=== PATIENT | female | born 1930 | race Caucasian/White ===

== ENCOUNTER → 2019-05-19 | Outpatient (CLI) | payer MEDICARE, BC, OTHER ==
[~2019-05-19] MED LIST: ASA81BEC PO; ASPIRIN81 M2 PO; ATORVASTATIN CA40 MG PO; BUPROPION XL300 MG PO; CALCIUM500 MG PO; CENTRUM SILVER1 EAC4 PO; CIPRO500 MG PO; ELIQUIS5 MG PO; FENOFIBRATE150 MG PO; FLAGYL500 MG PO; FLAXSEED OIL1000 MG PO; FOLIC ACID1 MG PO; GEMFIBROZIL 60600 MG PO; LEVAQUIN 500 M500 M3 PO; LIPITOR40 MG PO; MELATONIN3 MG PO; NEXIUM40 MG PO; PAXIL40 MG PO; PREDNISONE 10 M10 MG PO; SYNTHROID100 MCG PO; TOPROL XL100 MG PO; VITAMIN B12-FO1 EAC1 PO; WELLBUTRIN SR200 MG PO
== END ==
LOC: M.CT 12:31
DX: R91.1 Solitary pulmonary nodule (principal); J47.9 Bronchiectasis, uncomplicated; R93.89 Abnormal findings on diagnostic imaging of other specified body structures

== ENCOUNTER 2019-05-21 13:42 | Inpatient (IN) | payer MEDICARE, BC, OTHER ==
[~2019-05-21] VITALS: Ht 172.7 cm; Wt 84.8 kg
[~2019-05-21 13:42] MED LIST changes: -ASA81BEC PO; -BUPROPION XL300 MG PO; -CALCIUM500 MG PO; -ELIQUIS5 MG PO; -FENOFIBRATE150 MG PO; -FLAXSEED OIL1000 MG PO; -FOLIC ACID1 MG PO; -LEVAQUIN 500 M500 M3 PO; -LIPITOR40 MG PO; -PREDNISONE 10 M10 MG PO; -TOPROL XL100 MG PO; -VITAMIN B12-FO1 EAC1 PO
[2019-05-21 13:58] VITALS: BP 152/53
[2019-05-21] MEDS ORDERED: FENOFIBRATE150 MG PO (14:16)
[2019-05-21] MEDS ORDERED: BUPROPION XL300 MG PO (14:16)
[2019-05-21] MEDS ORDERED: TOPROL XL100 MG PO (14:16)
[2019-05-21] MEDS ORDERED: LIPITOR40 MG PO (14:16)
[2019-05-21] MEDS ORDERED: PAXIL40 MG PO (14:17)
[2019-05-21] MEDS ORDERED: FOLIC ACID1 MG PO (14:18)
[2019-05-21] MEDS ORDERED: CENTRUM SILVER1 EAC4 PO (14:18)
[2019-05-21] MEDS ORDERED: FLAXSEED OIL1000 MG PO (14:18)
[2019-05-21] MEDS ORDERED: CALCIUM500 MG PO (14:19)
[2019-05-21] MEDS ORDERED: VITAMIN B12-FO1 EAC1 PO (14:19)
[2019-05-21 14:38] LABS: HEMATOCRIT 37.7 % (37.0-47.0); HEMOGLOBIN 12.4 gm/dL (12.0-15.0); MCH 29.2 pg (26.0-34.0); MCHC 32.9 g/dL (28.0-37.0); MCV 88.6 fL (80.0-100.0); MPV 8.9 fl. (7.2-11.1); NUCLEATED RBCS 0 /100WBC; PLATELET COUNT* 219 thou/uL (150-400); RBC 4.25 mil/uL (4.20-5.00); RDW-CV 15.5 % (10.5-14.5)
[2019-05-21 14:43] LABS: CALCIUM 9.6 mg/dL (8.5-10.1); CREATININE 0.8 mg/dL (0.6-1.3); POTASSIUM 4.1 mmol/L (3.5-5.1)
[2019-05-21 14:53] LABS: ALBUMIN 3.5 g/dL (3.4-5.0); MAGNESIUM 1.5 mg/dL (1.8-2.4); TOTAL BILIRUBIN 0.5 mg/dL (<0.1-1.0); TOTAL PROTEIN 6.6 g/dL (6.4-8.2)
[2019-05-21 15:05] LABS: INFLUENZA A ANTIGEN Negative (Negative); INFLUENZA B ANTIGEN Negative (Negative)
[2019-05-21 15:27] LABS: BE -1.5 mmol/L (-2 to +3); PCO2 33.7 mmHg (35.0-45.0); pH 7.434 (7.340-7.450)
[2019-05-21 15:30] LABS: PO2 54.9 mmHg (75.0-100.0)
[2019-05-21 15:50] LABS: ABSOLUTE EOSINOPHILS 0.7 thou/uL (0.0-0.7); ABSOLUTE LYMPHOCYTES 24.1 thou/uL (0.8-5.3); ABSOLUTE MONOCYTES 0.7 thou/uL (0.0-1.2); ABSOLUTE NEUTROPHILS 7.6 thou/uL (1.6-8.1); ANISOCYTOSIS Occasional; ATYPICAL LYMPHS 3 %; PLATELET ESTIMATE ADEQUATE
[2019-05-21 16:39] LABS: URINE BILIRUBIN NEGATIVE (Negative); URINE BLOOD NEGATIVE (Negative); URINE CLARITY CLEAR; URINE COLOR YELLOW; URINE GLUCOSE-RANDOM NEGATIVE (Negative); URINE KETONES NEGATIVE (Negative); URINE LEUKOCYTES-REFLEX NEGATIVE (Negative); URINE NITRITE-REFLEX NEGATIVE (Negative); URINE PROTEIN NEGATIVE (Negative); URINE SPECIFIC GRAVITY 1.015 (1.005-1.030); URINE UROBILINOGEN 0.2 E.U./dl (0.2-1.0)
[2019-05-21 16:41] VITALS: BP 108/50
[2019-05-21 17:00] VITALS: BP 130/50
[2019-05-21 19:30] VITALS: BP 116/52
[2019-05-22 00:54] VITALS: BP 131/61
[2019-05-22 04:00] VITALS: BP 127/64
[2019-05-22 08:00] VITALS: BP 138/85
[2019-05-22 12:00] VITALS: BP 120/65
[2019-05-22 16:00] VITALS: BP 147/50
[2019-05-22 20:32] VITALS: BP 127/45
[2019-05-23] VITALS (7 sets, daily range): BP systolic 120–162; BP diastolic 46–94
[2019-05-23 05:48] LABS: HEMATOCRIT 31.7 % (37.0-47.0); MCH 28.7 pg (26.0-34.0); MCHC 32.4 g/dL (28.0-37.0); MCV 88.7 fL (80.0-100.0); RBC 3.58 mil/uL (4.20-5.00); RDW-CV 15.3 % (10.5-14.5); WBC 34.4 thou/uL (4.0-11.0)
[2019-05-23 05:52] LABS: HEMOGLOBIN 10.3 gm/dL (12.0-15.0)
[2019-05-23 06:08] LABS: ALBUMIN 2.8 g/dL (3.4-5.0); CALCIUM 9.2 mg/dL (8.5-10.1); CREATININE 0.8 mg/dL (0.6-1.3); MAGNESIUM 1.8 mg/dL (1.8-2.4); POTASSIUM 3.9 mmol/L (3.5-5.1); TOTAL BILIRUBIN 0.3 mg/dL (<0.1-1.0); TOTAL PROTEIN 5.5 g/dL (6.4-8.2)
[2019-05-24] VITALS: BP 143/62
[2019-05-24 04:00] VITALS: BP 165/66
[2019-05-24 08:00] VITALS: BP 156/114; BP 156/70
--- NOTE | 2019-05-24 08:35 | EKG ---
[place] [address] ELECTROCARDIOGRAM REPORT Name: MARGA ARECHIGA Room: [address] ADM IN .R.#: [id number] Admission: 05/21/19 Attend Phys: Sandra Covington MD Discharge: Date of : 34 Report #: [id number] THIS REPORT FOR: //name// [facility] ED Test Date: 2019-05-21 Test Time: 14:13:14 Pat Name: MARGA ARECHIGA Department: Room: [address] Gender: F Refiner Operator: : 1930 Requested By: Mariam Dangelo Order Number: [id number] Isaiah MD: Lon Guerrier Measurements Intervals [place] Rate: 79 P: -34 CT: 197 QRS: 40 QRSD: 95 T: 33 QT: 372 QTc: 427 Interpretive Statements Sinus rhythm Possible left atrial enlargement Artifact Compared to ECG 03/22/2016 19:50:14 Changes noted Electronically Signed On 05-24-2019 8:35:42 CDT by Lon Guerrier [email or web address] <ELECTRONICALLY SIGNED> By: Lon Guerrier MD, [facility] 05/24/19 0835 1413 1413 Lon Guerrier MD, [facility] /EPI
--- NOTE | 2019-05-24 12:33 | 2DMMODE ---
[place] [address] 2 D/M-MODE ECHOCARDIOGRAM Name: HAWKMARGA GAVIOTALázaro Room: [address] IN [facility]#: [id number] Admission: 05/21/19 Attend Phys: Sandra Covington, Discharge: Date of : 34 Date of Service: 05/24/19 1233 Report #: [id number] THIS REPORT FOR: //name// APPROVED REPORT Study performed: 05/24/2019 10:18:40 EXAM: Comprehensive 2D, Doppler, and color-flow Echocardiogram Patient Location: In-Patient Room #: 229 BSA: 1.97 HR: 70 bpm BP: 156/70 mmHg Other Information Study Quality: Good Indications Hypoxemia 2D Dimensions IVSd: 12.66 (7-11mm) LVOT Diam: 20.64 (18-24mm) LVDd: 48.88 mm PWd: 10.91 (7-11mm) Ascending Ao: 29.60 (22-36mm) LVDs: 29.64 (25-40mm) Aortic Root: 29.47 mm Volumes Left Atrial Volume (Systole) LA ESV Index: 24.20 mL/m2 Aortic Valve AoV Peak Asher.: 1.96 m/s AO Peak Gr.: 15.39 mmHg LVOT Max P.43 mmHg AO Mean Gr.: 8.41 mmHg LVOT Mean P.15 mmHg LVOT Max V: 1.17 m/s AO V2 VTI: 39.99 cm LVOT Mean V: 0.66 m/s LUIS ALFREDO (VTI): 2.22 cm2 LVOT V1 VTI: 26.50 cm AI Bartholomew: 2.29 m/s2 AI PHT: 493.24 ms Mitral Valve E/A Ratio: 0.72 MV Decel. Time: 205.12 [place] [address] 2 D/M-MODE ECHOCARDIOGRAM Name: MARGA ARECHIGA Room: [address] IN .R.#: [id number] Admission: 05/21/19 Attend Phys: Sandra Covington, Discharge: Date of : 34 Date of Service: 05/24/19 1233 Report #: [id number] MV E Max Asher.: 0.67 m/s MV PHT: 59.49 ms MVA (PHT): 3.70 cm2 TDI E/Lateral E': 7.44 E/Medial E': 9.57 Medial E' Asher.: 0.07 m/s Lateral E' Asher.: 0.09 m/s Pulmonary Valve PV Peak Asher.: 0.87 m/s PV Peak Gr.: 3.03 mmHg Tricuspid Valve RAP Estimate: 5.00 mmHg TR Peak Gr.: 26.48 mmHg RVSP: 31.48 mmHg PA Pressure: 31.48 mmHg Left Ventricle The left ventricle is normal size. There is normal LV segmental wall motion. There is normal left ventricular wall thickness. Left ventricular systolic function is normal. LVEF is 60-65%. Grade I - abnormal relaxation pattern. Right Ventricle The right ventricle is normal size. The right ventricular systolic function is normal. Atria The left atrium size is normal. The right atrium size is normal. Aortic Valve Aortic valve is mildly calcified. Mild to moderate aortic regurgitation. There is no aortic valvular stenosis. Mitral Valve Mild mitral annular calcification. There is no mitral valve regurgitation noted. No evidence of mitral valve stenosis. Tricuspid Valve The tricuspid valve is normal in structure. Mild tricuspid regurgitation. The RVSP is 30-35 mmHg. Pulmonic Valve The pulmonary valve is normal in structure. There is no pulmonic [place] [address] 2 D/M-MODE ECHOCARDIOGRAM Name: MARGA ARECHIGA Room: [address] IN [facility]#: [id number] Admission: 05/21/19 Attend Phys: Sandra Covington, Discharge: Date of : 34 Date of Service: 05/24/19 1233 Report #: [id number] Great Vessels The aortic root is normal in size. IVC is normal in size and collapses >50% with inspiration. Pericardium There is no pericardial effusion. <Conclusion> The left ventricle is normal size. There is normal left ventricular wall thickness. Left ventricular systolic function is normal. LVEF is 60-65%. Grade I - abnormal relaxation pattern. Aortic valve is mildly calcified. Mild to moderate aortic regurgitation. There is no aortic valvular stenosis. Mild tricuspid regurgitation. The RVSP is 30-35 mmHg. IVC is normal in size and collapses >50% with inspiration. Mild mitral annular calcification. <ELECTRONICALLY SIGNED> By: Lon Guerrier MD, FACC 05/24/19 1233 1233 1233 Lon Guerrier MD, FACC /INF
[2019-05-24 12:34] VITALS: BP 138/69
[2019-05-24 16:59] VITALS: BP 141/65
[2019-05-24 20:00] VITALS: BP 122/56
[2019-05-25] VITALS: BP 126/49
[2019-05-25 04:00] VITALS: BP 114/53
[2019-05-25 08:00] VITALS: BP 132/51
[2019-05-25 10:43] VITALS: BP 152/53
--- NOTE | 2019-05-25 15:02 | EKG ---
[place] [address] ELECTROCARDIOGRAM REPORT Name: MARGA ARECHIGA Room: [address] ADM IN M.R.#: [id number] Admission: 05/21/19 Attend Phys: Sandra Covington MD Discharge: Date of : 34 Report #: [id number] THIS REPORT FOR: //name// [facility] Test Date: 2019-05-24 Test Time: 19:04:33 Pat Name: MARGA ARECHIGA Department: Room: [address] Gender: F Refrigeration Installer: MGERST : 1930 Requested By: Sandra Covington Order Number: [id number] Reading MD: Severino Luna Measurements Intervals [place] Rate: 131 P: ND: QRS: 39 QRSD: 92 T: 8 QT: 321 QTc: 474 Interpretive Statements Atrial fibrillation with a tachycardic response Repolarization abnormality, prob rate related Baseline wander in lead(s) V3,V4,V5 Compared to ECG 05/21/2019 14:13:14 Atrial fibrillation is noted Sinus rhythm no longer present Electronically Signed On 05-25-2019 15:02:15 CDT by Severino Luna [email or web address] <ELECTRONICALLY SIGNED> By: Severino Luna MD, FACC 05/25/19 1502 03 03 Severino Luna MD, FAC /EPI
--- NOTE | 2019-05-25 15:07 | EKG ---
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[facility] : 1930 Requested By: Washington Byrnes Order Number: [id number] Isaiah GARNER: Severino Luna Measurements Intervals [place] Rate: 61 P: 12 CO: 141 QRS: 26 QRSD: 96 T: 30 QT: 426 QTc: 429 Interpretive Statements Sinus rhythm with sinus arrhythmia Compared to ECG 05/21/2019 14:13:14 rhythm has reverted from atrial fibrillation to sinus mechanism Electronically Signed On 05-25-2019 15:07:12 CDT by Severino Luna [email or web address] <ELECTRONICALLY SIGNED> By: Severino Luna MD, FACC 05/25/19 1507 0428 0428 Severino uLna MD, [facility] /EPI
[2019-05-25 15:59] VITALS: BP 125/50
[2019-05-25 19:50] VITALS: BP 141/56
[2019-05-26] VITALS: BP 95/53
[2019-05-26 04:00] VITALS: BP 134/63
[2019-05-26 08:00] VITALS: BP 107/47
[2019-05-26] MEDS ORDERED: LEVAQUIN 500 M500 M3 PO (11:11)
[2019-05-26] MEDS ORDERED: PREDNISONE 10 M10 MG PO (11:11)
[2019-05-26] MEDS ORDERED: ASA81BEC PO (11:16)
[2019-05-26 13:59] VITALS: BP 87/45
[2019-05-26 14:11] VITALS: BP 136/50
[2019-05-26 16:03] VITALS: BP 132/59
[2019-05-26] MEDS ORDERED: ELIQUIS5 MG PO (16:35)
--- NOTE | 2019-06-06 11:50 | CON ---
[address] [address] CONSULTATION Name: MARGA ARECHIGA Room: [address] IN M.R.#: [id number] Admission: 05/21/19 Attend Phys: Sandra Covington MD Discharge: 05/26/19 Date of : 34 Report #: [id number] THIS REPORT FOR: //name// CC: Hayley Covington DATE OF SERVICE: 05/22/2019 REQUESTING PHYSICIAN: Sandra Covington MD REASON FOR CONSULTATION: Lung nodules, CLL. HISTORY OF PRESENT ILLNESS: The patient is a pleasant 88-year-old female with history of CLL who is admitted to the hospital with cough and shortness of breath for about a week. She had a chest x-ray done, which did not demonstrate any infiltrate. She has been treated recently for bronchitis. She had a CT scan done, which showed mildly enlarged prominent mediastinal lymphadenopathy, possibly reactive versus metastatic, noncalcified pulmonary nodule in right upper lung. Oncology consult is requested. The patient is doing fine. She is doing much better. Does not have shortness of breath. Denies cough or fevers. Denies hemoptysis. She has been diagnosed with CLL while she was living in [place]. She moved here not long ago. She was advised to see Dr. Sanchez for followup of CLL. She sees Dr. Sanchez" twice a year." She has knowledge about having small nodule in the lung. She currently does not smoke. PAST MEDICAL HISTORY: Significant for CLL, depression, history of alcoholism. Smoking, quit smoking 35 years ago. Quit alcohol abuse 40 years ago. History of COPD. SOCIAL HISTORY: Lives alone. Has 5 daughters, 3 of them live in [facility]. PHYSICAL EXAMINATION: GENERAL: Reveals a well-developed, well-nourished elderly female, not in acute distress. VITAL SIGNS: Blood pressure 120/65, heart rate is 98, temperature 98.0. HEENT: Does not reveal thrush. There is no supraclavicular or cervical palpable lymphadenopathy. HEART: Normal S1, S2. LUNGS: Clear. ABDOMEN: Soft. MENTAL STATUS: Alert and oriented x 3. SKIN: Does not reveal any rash. LABORATORY DATA: White count 23.0, hemoglobin 12.4, platelets 119, lymphocytes 70%. Absolute lymphocyte count 24.1. Sodium 138, potassium 4.1, BUN 18, [place] [address] CONSULTATION Name: MARGA ARECHIGA Room: [address]#: [id number] Admission: 05/21/19 Attend Phys: Sandra Covington MD Discharge: 05/26/19 Date of : 34 Report #: [id number] of chest reviewed. ASSESSMENT AND PLAN: 1. Chronic lymphocytic leukemia. I advised to continue follow up with Dr. Zelaya. She is very happy to hear that there is [facility] close to her residence. 2. Lung nodule. She will have CT scan of chest in 3 months. This will be ordered by Dr. Zelaya. Thank you very much for allowing me to participate in the care of this patient. <ELECTRONICALLY SIGNED> By: Liliane Perez MD 06/06/19 1150 1410 1524Liliane Perez MD /nt
== END 2019-05-26 17:00 | disposition home health service (06) | DRG 177 ==
LOC: M.ERS 13:42 → M.2W 15:47 → M.TBA-ER 15:47 → M.2W 16:36
PROVIDERS: Personal Emergency Response Attendant; ADMIT Internal Medicine
DX: J15.6 Pneumonia due to other Gram-negative bacteria (principal); J96.01 Acute respiratory failure with hypoxia; C91.10 Chronic lymphocytic leukemia of B-cell type not having achieved remission; I48.92 Unspecified atrial flutter; J22 Unspecified acute lower respiratory infection; F32.9 Major depressive disorder, single episode, unspecified; Z60.2 Problems related to living alone; R91.1 Solitary pulmonary nodule; I48.0 Paroxysmal atrial fibrillation; E78.5 Hyperlipidemia, unspecified; Z85.41 Personal history of malignant neoplasm of cervix uteri; Z90.710 Acquired absence of both cervix and uterus; Z87.81 Personal history of (healed) traumatic fracture; Z87.891 Personal history of nicotine dependence

== ENCOUNTER → 2019-09-20 | Outpatient (CLI) | payer MEDICARE, BC, OTHER ==
[~2019-09-20] MED LIST changes: +ASA81BEC PO; +BUPROPION XL300 MG PO; +CALCIUM500 MG PO; +ELIQUIS5 MG PO; +FENOFIBRATE150 MG PO; +FLAXSEED OIL1000 MG PO; +FOLIC ACID1 MG PO; +LEVAQUIN 500 M500 M3 PO; +LIPITOR40 MG PO; +PREDNISONE 10 M10 MG PO; +TOPROL XL100 MG PO; +VITAMIN B12-FO1 EAC1 PO
== END ==
LOC: M.CT 09-16 13:30
DX: R91.1 Solitary pulmonary nodule (principal); C91.10 Chronic lymphocytic leukemia of B-cell type not having achieved remission; I70.0 Atherosclerosis of aorta; I25.10 Atherosclerotic heart disease of native coronary artery without angina pectoris; J98.4 Other disorders of lung; J43.9 Emphysema, unspecified; R16.1 Splenomegaly, not elsewhere classified; M25.78 Osteophyte, vertebrae

== ENCOUNTER 2021-05-25 12:50 | Inpatient (IN) | payer MEDICARE, BC, OTHER ==
[~2021-05-25] VITALS: Ht 172.7 cm; Wt 71.7 kg
[~2021-05-25 12:50] MED LIST changes: -BUPROPION XL300 MG PO; -TOPROL XL100 MG PO; +TOPROL XL25 MG PO
[2021-05-25 13:05] VITALS: BP 134/52
[2021-05-25] MEDS ORDERED: ESTRACE42.5 GM VAG (13:10)
[2021-05-25] MEDS ORDERED: METROGEL-VAGINA70 GM VAG (13:10)
[2021-05-25] MEDS ORDERED: SPIRONOLACTONE25 MG PO (13:11)
[2021-05-25] MEDS ORDERED: FUROSEMIDE 20 M20 MG PO (13:11)
[2021-05-25] MEDS ORDERED: ZITHROMAX250 MG PO (13:12)
[2021-05-25] MEDS ORDERED: PROTONIX40 M2 PO (13:13)
[2021-05-25] MEDS ORDERED: MELATONIN10 M3 PO (13:13)
[2021-05-25] MEDS ORDERED: LEVO-T75 MCG PO (13:14)
[2021-05-25 15:52] LABS: HEMATOCRIT 35.6 % (37.0-47.0); HEMOGLOBIN 11.2 gm/dL (12.0-15.0); MCH 29.3 pg (26.0-34.0); MCHC 31.3 g/dL (28.0-37.0); MCV 93.4 fL (80.0-100.0); MPV 8.2 fl. (7.2-11.1); NUCLEATED RBCS 0 /100WBC; PLATELET COUNT* 242 thou/uL (150-400); RBC 3.81 mil/uL (4.20-5.00); RDW-CV 16.5 % (10.5-14.5)
[2021-05-25 15:56] LABS: WBC 63.3 thou/uL (4.0-11.0)
[2021-05-25 16:07] LABS: CALCIUM 9.1 mg/dL (8.5-10.1); CREATININE 1.1 mg/dL (0.6-1.3); POTASSIUM 4.4 mmol/L (3.5-5.1)
[2021-05-25 16:14] LABS: ALBUMIN 3.3 g/dL (3.4-5.0); TOTAL BILIRUBIN 0.3 mg/dL (<0.1-1.0); TOTAL PROTEIN 7.4 g/dL (6.4-8.2)
[2021-05-25 16:23] LABS: ABSOLUTE LYMPHOCYTES 56.3 thou/uL (0.8-5.3); ABSOLUTE MONOCYTES 0.6 thou/uL (0.0-1.2); ABSOLUTE NEUTROPHILS 6.3 thou/uL (1.6-8.1)
[2021-05-25 16:25] LABS: PLATELET ESTIMATE ADEQUATE
[2021-05-25 22:11] VITALS: BP 115/76
[2021-05-26] VITALS: BP 148/65
[2021-05-26 08:30] VITALS: BP 144/69
[2021-05-26 16:00] VITALS: BP 109/61
[2021-05-26 20:53] VITALS: BP 121/56
[2021-05-27 05:05] LABS: ABSOLUTE LYMPHOCYTES 46.6 thou/uL (0.8-5.3); ABSOLUTE MONOCYTES 0.6 thou/uL (0.0-1.2); ABSOLUTE NEUTROPHILS 4.9 thou/uL (1.6-8.1); EOSINOPHILS 0.3 %; HEMATOCRIT 33.2 % (37.0-47.0); HEMOGLOBIN 10.6 gm/dL (12.0-15.0); LYMPHOCYTES 89.1 %; MCH 29.5 pg (26.0-34.0); MCV 92.1 fL (80.0-100.0); MONOCYTES 1.2 %; MPV 8.5 fl. (7.2-11.1); NUCLEATED RBCS 0 /100WBC; PLATELET COUNT* 194 thou/uL (150-400); POLYS 9.4 %; RDW-CV 16.2 % (10.5-14.5)
[2021-05-27 05:10] LABS: ABSOLUTE EOSINOPHILS 0.2 thou/uL (0.0-0.7)
[2021-05-27 05:11] LABS: WBC 52.3 thou/uL (4.0-11.0)
[2021-05-27 05:14] LABS: CALCIUM 8.7 mg/dL (8.5-10.1); CREATININE 1.3 mg/dL (0.6-1.3); POTASSIUM 3.9 mmol/L (3.5-5.1)
[2021-05-27 16:00] VITALS: BP 114/53
[2021-05-27 20:06] VITALS: BP 108/58
[2021-05-28 08:30] VITALS: BP 130/68
[2021-05-28 15:35] VITALS: BP 134/74
[2021-05-28 20:15] VITALS: BP 119/57
[2021-05-29 08:06] VITALS: BP 144/74
[2021-05-29 08:53] VITALS: BP 144/74
== END 2021-05-29 16:10 | DRG 981 ==
LOC: M.ERS 12:50 → M.TBA-ER 15:28 → M.3W 15:28
PROVIDERS: Internal Medicine; Physician Assistant; ADMIT Internal Medicine; ATTEND Internal Medicine
PROC: 0XQNXZZ Repair Right Index Finger, External Approach (ICD-10-PCS; 2021-05-25)
PROC: 02HV33Z Insertion of Infusion Device into Superior Vena Cava, Percutaneous Approach (ICD-10-PCS; principal; 2021-05-29)
PROC: B548ZZA Ultrasonography of Superior Vena Cava, Guidance (ICD-10-PCS; principal; 2021-05-29)
PROC: B5181ZA Fluoroscopy of Superior Vena Cava using Low Osmolar Contrast, Guidance (ICD-10-PCS; principal; 2021-05-29)
DX: S82.001A Unspecified fracture of right patella, initial encounter for closed fracture (principal); S72.142A Displaced intertrochanteric fracture of left femur, initial encounter for closed fracture; N39.0 Urinary tract infection, site not specified; J96.11 Chronic respiratory failure with hypoxia; C91.10 Chronic lymphocytic leukemia of B-cell type not having achieved remission; D84.89 Other immunodeficiencies; Z16.12 Extended spectrum beta lactamase (ESBL) resistance; S83.206A Unspecified tear of unspecified meniscus, current injury, right knee, initial encounter; S61.210A Laceration without foreign body of right index finger without damage to nail, initial encounter; Z20.822 Contact with and (suspected) exposure to COVID-19; M25.461 Effusion, right knee; B96.20 Unspecified Escherichia coli [E. coli] as the cause of diseases classified elsewhere; G30.9 Alzheimer's disease, unspecified; F02.80 Dementia in other diseases classified elsewhere, unspecified severity, without behavioral disturbance, psychotic disturbance, mood disturbance, and anxiety; F32.9 Major depressive disorder, single episode, unspecified; F41.9 Anxiety disorder, unspecified; Z79.82 Long term (current) use of aspirin; Z79.899 Other long term (current) drug therapy; Z85.41 Personal history of malignant neoplasm of cervix uteri; Z90.710 Acquired absence of both cervix and uterus; Z86.711 Personal history of pulmonary embolism; Z87.891 Personal history of nicotine dependence; W18.39XA Other fall on same level, initial encounter; Y93.89 Activity, other specified; Y92.89 Other specified places as the place of occurrence of the external cause; Y99.8 Other external cause status